=== PATIENT | male | born 1940 | race Caucasian/White ===

== ENCOUNTER 2023-02-01 12:02 | Day surgery (SDC) | payer BC, MEDICARE, SELFPAY ==
[2023-01-26 13:25] VITALS: BMI 25.8
[2023-02-01] VITALS (10 sets, daily range): BP systolic 106–146; BP diastolic 54–89; PULSE 58–90; RESP 12–23; TEMP 36.4–37.1; O2SAT 94–100; BMI 25.8
--- NOTE | 2023-02-01 06:39 | DI.RAD.S_ITS ---
PROCEDURE: XR HIP W PEL IF DONE RT 2V INDICATIONS: post op TECHNIQUE: 4 intraoperative fluoroscopic spot films were obtained COMPARISON: None. FINDINGS: Low resolution intraoperative fluoroscopic spot films show right arthroplasty in progress IMPRESSION: Fluoroscopic guidance Approved by: Reuben Melgar M.D. on 02/01/2023 at 17:27
[2023-02-01] MEDS: CELECOXIB 200 MG CAPSULE PO (12:22)
[2023-02-01 12:23] LABS: COVID19 -Nasal RAPID Negative (Negative)
[2023-02-01] MEDS: ACETAMINOPHEN 325 MG TABLET 975 MG PO (12:23)
[2023-02-01] MEDS: LACTATED RINGERS 1,000 ML 42 ML IV ×2 (12:23→16:06)
[2023-02-01] MEDS: VANCOMYCIN 1,000 MG/200 ML PIGGYBACK 200 MG IV (12:49)
--- NOTE | 2023-02-01 13:35 | PM.PREOP ---
Pre-operative Note COVID-19 COVID-19 status: Negative Interval Note History & Physical reviewed/Exam performed by Physician: Yes Changes to H&P: No
--- NOTE | 2023-02-01 13:36 | PM.OP.1 ---
Operative Date/Time/Diagnoses Date of procedure: 02/01/23 Time of procedure: 14:00 Pre-op diagnosis: right hip OA Post-op diagnosis: same Procedure & Clinicians Procedure: Right total hip arthroplasty anterior approach Same procedure as scheduled: Yes Indications: The patient has had progressively worsening right hip pain with radiographic changes consistent with arthritis. Non-operative management has failed and the patient has requested total hip replacement. The risks, benefits and alternatives to surgery were discussed with the patient prior to proceeding. Risks discussed included, but were not limited to, failure to relieve pain, leg length discrepancy, dislocation, stiffness, infection, nerve damage, deep venous thrombosis, pulmonary embolism, stroke, coma, heart attack, permanent paralysis and , as well as the potential need for eventual revision of the prosthetic. Surgeon: Qiana Hedrick Senior Animal Trainer: Mayur Smalls Anesthesia Type: General and Spinal Operative Notes Findings: Severe right hip OA, adequate bone and stability Closure Type: primary Specimen(s): none sent Prosthetic devices, grafts, tissues, transplants, or devices: Hedrick and nephew anthology a fit size 9 standard offset, R3 54, neutral poly liner,one 6.5 mm screw, 36 x -3 Oxinium head Estimated Blood Loss (mL): 250 Blood products transfused: none Procedure in detail: The patient was brought to the operating room. Patient was carefully positioned in the supine position. Time-out was performed and antibiotics were given. Anesthesia was induced. He was positioned in the on the table in order to allow hyperextension of the hip. The right lower extremity was prepped and draped in a standard sterile fashion. An anterior right hip incision was made 1 fingerbreadth lateral to the anterior superior iliac spine and extended distally towards the greater trochanter. Dissection was carried out through skin and subcutaneous tissues. Superficial hemostasis was achieved. The fascia over the tensor fascia sara was defined and incised with a knife. Two Allis clamps were used to grasp the fascia. Tensor fascia sara was retracted laterally. A gelpi retractor was placed. Dissection was carried out down along the neck. The circumflex vessels were carefully identified and cauterized with the werewolf. There was good visualization of the femoral neck. A Cobra was placed superior to the neck and the gluteus fibers were carefully stripped from that superior aspect of the capsule. A 2nd retractor was placed along the inferior aspect of the neck. The rectus insertion along the capsule was partially released. A 3rd retractor that was then gently placed over the rim of the acetabulum under the rectus. Capsule was carefully incised and released from the intertrochanteric line circumferentially superior to the mid sagittal line and inferiorly to the mid sagittal line until the lesser trochanter was palpable. A tag stitch was placed both in the superior and inferior limb of the capsular insertion. Along the acetabulum capsule was also released up to the mid sagittal 12:00 position. A portion of the labrum was resected. A saw was used to perform an osteotomy at the level of the intertrochanteric line and the junction of the superior femoral neck leaving approximately 1 finger breath of residual inferior neck above the lesser trochanter. A 2nd cut was made along the femoral neck at the base of the head and a napkin ring of neck was removed. Corkscrew was placed in the femoral head and the head was removed without difficulty. Retractors were then repositioned around the acetabulum. Residual labrum was resected and additional osteophytes were removed. A reamer that was 4 mm below the templated size was placed by hand in the acetabulum and it was reamed to centralize the acetabulum. It was then reamed up to 2 under the templated size and fluoroscopy was brought in to confirm the position of the reaming and depth of reaming. I reamed 1 under the anticipated size. A trial cup was placed and noted that it was appropriately sized and fluoroscopy confirmed position and depth. The component was open and inserted without difficulty fluoroscopic imaging was used to confirm that the cup had been adequately seated and was well positioned. It was further stabilized with a single screw. Neutral poly liner was placed. The cup was tested and noted to be stable. Attention was then directed to the femur. The femur was gently hyperextended additional capsular release was performed as needed in order to allow adequate visualization of the proximal femur with elevation of the femur. Patient was placed in a hyperextended slightly adducted position with maximum external rotation. Box osteotome was used to check for any residual neck as well as sclerotic bone along the trochanter. [place] pepper was placed in the femur. Additional broaching was performed. Canal finder was used to determine the alignment of the canal and position. Size 1 broach was placed. The canal was then appropriately broached up to the templated size as long as there was adequate stability of the broach and serial advancement of the broach without excessive impingement. Specific attention was directed at avoiding varus attempting to direct the distal aspect of the broach more anteriorly and avoiding excessive anteversion. Trial reduction showed acceptable range of motion, good stability, no posterior impingement, sikhism of leg length and appropriate lateral shuck. I also hyperflexed the hip and checked that there was no impingement anteriorly and there was good stability with flexion, adduction and internal rotation. Marcaine and Exparel were injected. The stem was placed without difficulty. Repeat trial reduction and x-ray showed acceptable overall position, length, and no evidence of the femoral fracture. Final head was placed. Wound was meticulously irrigated with normal saline. The hip was reduced and additional Exparel and Marcaine were injected. The capsule was closed with interrupted nonabsorbable sutures. The fascia of the tensor was closed with interrupted and running Vicryl. No drain was placed. Any tensor fascia sara muscle that appeared to be contused or injured which was a minimal amount was carefully resected. Capsule around the tensor was injected with Exparel and Marcaine. The skin was closed with barbed stitches for the subcutaneous tissue and skin. We also used surgical glue. The wound was dressed sterilely. Brief Betadine soak was also used and was meticulously irrigated with normal saline. Patient was transferred to recovery room in satisfactory condition. Complications: none Post-operative Condition: stable Disposition: Acute Care Plan for aftercare: The patient will be maintained on a standard total hip replacement protocol with weight bearing as tolerated and anterior hip precautions. The patient will receive Aspirin and sequential compression devices for DVT prophylaxis. The patient will be discharged home when safe for the home environment.
[2023-02-01] MEDS: CEFAZOLIN 2 GM/100 ML PREMIX 100 ML IV ×2 (14:15→22:07)
[2023-02-01] MEDS: TRANEXAMIC ACID 1,000 MG VIAL 1000 MG INJ ×2 (14:25→16:20)
--- NOTE | 2023-02-01 14:45 | SUR.OPER ---
Patient supine on padded Henrietta table, one arm on padded arm board at <90, other arm padded and secured with tape across patient's chest, both legs secured in padded traction boots and positioned per surgeon, padded post at patient's groin, pressure points checked and padded.
[2023-02-01] MEDS: BUPIVACAINE 0.25% (PF) 60 ML, EPINEPHrine 0.3 MG INJ (15:53)
[2023-02-01] MEDS: BUPIVACAINE LIPOSOME 266 MG/20 ML VIAL INJ (15:53)
[2023-02-01] MEDS: SODIUM CHLORIDE IRRIG SOLUTION 250 ML, POVIDONE-IODINE SPONGE STICKS 1 APPLIC IRR (16:08)
--- NOTE | 2023-02-01 17:00 | DI.RAD.S_ITS ---
PROCEDURE: XR HIP W PEL IF DONE RT 2V INDICATIONS: RIGHT ANTERIOR POST OP HIP TECHNIQUE: AP pelvis and lateral view of the right hip acquired. COMPARISON: Located Within [facility], [place], XR HIP W PEL IF DONE RT 2V, 02/01/2023, 15:18. FINDINGS: Bones: Patient is status post right hip arthroplasty, with hardware components in expected positions. The hip joint appears congruent. The visualized bony structures appear intact. Soft tissues: Overlying postoperative changes are noted. No suspicious soft tissue densities. IMPRESSION: Postoperative changes from right hip arthroplasty. No definite unexpected findings. Dictated by: Allen Pelaez M.D. on 02/02/2023 at 9:01 Approved by: Allen Pelaez M.D. on 02/02/2023 at 9:08
[2023-02-01] MEDS: hydrOXYzine pamoate 25 MG CAPSULE PO (17:15)
[2023-02-01] MEDS: OXYCODONE IR 5 MG TABLET PO (17:15)
[2023-02-01] MEDS: ACETAMINOPHEN 325 MG TABLET 650 MG PO ×2 (18:21→23:18)
[2023-02-01] MEDS: IBUPROFEN 400 MG TABLET PO ×2 (18:21→23:17)
[2023-02-01] MEDS: LACTATED RINGERS 1,000 ML 100 ML IV (18:21)
[2023-02-01] MEDS: DOCUSATE 100 MG CAPSULE PO (20:34)
[2023-02-01] MEDS: PREGABALIN 75 MG CAPSULE 150 MG PO (20:34)
[2023-02-01] MEDS: TAMSULOSIN 0.4 MG CAPSULE PO (20:34)
[2023-02-01] MEDS: ASPIRIN EC 81 MG TABLET PO (20:34)
[2023-02-02] VITALS: BP 131/83; PULSE 76; RESP 18; TEMP 36.7; O2SAT 96
--- NOTE | 2023-02-02 01:24 | PC.NURSE ---
Addendum entered by Michelle Kumar R.N. 02/02/23 06:47: Stood to void 525ml in urinal. PA in room to change saturated drsg. Original Note: Dbas Notes-At 2300, patient stood at side of bed to use urinal, voided 75ml, bladder scanned for 918ml, straight catheter done, drained 900ml clear yellow urine, patient tolerated well. Has minimal pain to right hip, scheduled ibuprofen and Tylenol given.
[2023-02-02 04:00] VITALS: BP 118/74; PULSE 72; RESP 18; TEMP 36.9; O2SAT 96
[2023-02-02 04:44] LABS: Hematocrit 36.3 % (41-53); Hemoglobin 12.1 g/dL (13.5-17.5)
[2023-02-02] MEDS: IBUPROFEN 400 MG TABLET PO ×2 (06:18→09:55)
[2023-02-02] MEDS: CEFAZOLIN 2 GM/100 ML PREMIX 100 ML IV (06:19)
[2023-02-02] MEDS: ACETAMINOPHEN 325 MG TABLET 650 MG PO ×2 (06:19→11:49)
--- NOTE | 2023-02-02 06:46 | P.DS_ITS ---
History of Present Illness History of Present Illness Date Patient Seen: 02/02/23 Time Patient Seen: 06:46 Chief complaint: Anterior YOGI Right *OPB* Narrative: Operative Date/Time/Diagnoses Date of procedure: 02/01/23 Time of procedure: 14:00 Pre-op diagnosis: right hip OA Post-op diagnosis: same Procedure & Clinicians Procedure: Right total hip arthroplasty anterior approach Same procedure as scheduled: Yes Indications: The patient has had progressively worsening right hip pain with radiographic changes consistent with arthritis. Non-operative management has failed and the patient has requested total hip replacement. The risks, benefits and alternatives to surgery were discussed with the patient prior to proceeding. Risks discussed included, but were not limited to, failure to relieve pain, leg length discrepancy, dislocation, stiffness, infection, nerve damage, deep venous thrombosis, pulmonary embolism, stroke, coma, heart attack, permanent paralysis and , as well as the potential need for eventual revision of the prosthetic. Surgeon: Qiana Hedrick Bootmaker: Mayur Smalls Anesthesia Type: General and Spinal Operative Notes Findings: Severe right hip OA, adequate bone and stability Closure Type: primary Specimen(s): none sent Prosthetic devices, grafts, tissues, transplants, or devices: Hedrick and nephew anthology a fit size 9 standard offset, R3 54, neutral poly liner,one 6.5 mm screw, 36 x -3 Oxinium head Estimated Blood Loss (mL): 250 Blood products transfused: none Discharge Providers Provider Discharge Date: 02/02/23 Primary care physician: Vielka Rodriguez MD Consults: 02/01/23 06:39 Consult to Anesthesiology Routine Comment: Consulting Provider: Anesthesiologist Reason for consultation: Regional block for post operative pain control 02/01/23 18:01 Consult to Discharge Planning Routine Comment: Consult to Physical Therapy Evaluate & Treat Comment: Physician Instructions: post op YOGI protocol Discharge provider: Muna Moreno PA-C Summary Hospital Course Discharge Diagnosis: Right hip osteoarthritis, s/p right total hip arthroplasty Hospital Course: Mr Arreaga's hospital course was unremarkable. On POD# 1 he was feeling well and wanted to go home. He was eating and voiding without difficulty and his pain was well-controlled with oral medication. He had not yet been evaluated by PT when I saw him. Exam Vital Signs (past 8 hours): - 02/02/23 00:00 02/02/23 04:00 Temperature 98.0 F 98.5 F Pulse Rate 76 72 Respiratory Rate 18 18 Blood Pressure 131/83 118/74 Pulse Oximetry 96 96 Oxygen Flow Rate 1 Oxygen Delivery Method Room Air,Nasal Cannula Oxygen Flow Rate 1 Narrative Exam Narrative: 5/5 strength in hip flexors, quadriceps, hamstrings, DF, PF, EHL on right. Sensation to light touch intact throughout RLE. Calves soft, compressible, nontender and without palpable cords or masses. Aquacel dressing saturated with blood and changed sterilely. Objective Labs 02/02/23 04:15 Labs: Laboratory Results - last 24 hr 02/01/23 02/02/23 12:00 04:15 Hgb 12.1 L Hct 36.3 L SARS-CoV-2 (PCR) Negative PFSH Medical History (Updated 01/26/23 @ 14:11 by Radha Flores RN) BPH (benign prostatic hyperplasia) Brachial plexus injury Easy bruisability Osteoarthritis Surgical History (Updated 01/26/23 @ 14:10 by Radha Flores RN) History of bilateral carpal tunnel release Hx of bilateral cataract extraction Hx of fusion of cervical spine Hx of right inguinal hernia repair (2017) Hx of shoulder surgery Hx of shoulder surgery Hx of tonsillectomy Social History household members: significant other Smoking Status: Never smoker alcohol intake: current Discharge Assessment & Plan Assessment and Plan Assessment: Right hip osteoarthritis, s/p right total hip arthroplasty Plan of Treatment: Discharge home, ASA 81 mg BID x 6 weeks for VTE prophylaxis. Multimodal pain control, outpt PT, f/u in office in 2 weeks. Discharge Plan Discharge Plan Patient Disposition: Home Discharge orders & Medications Discharge Orders: Discharge (Order); Ordered 02/02/23 Ordered By: Muna Moreno Prescriptions: Continued tamsulosin 0.4 mg Capsule 0.4 mg PO BEDTIME ibuprofen 200 mg Tablet 400 mg PO DAILY PRN (Reason: Pain) duloxetine 20 mg Capsule,Delayed Release(Dr/Ec) 20 mg PO DAILY duloxetine 60 mg Capsule,Delayed Release(Dr/Ec) 60 mg PO DAILY Patient Comments: Takes with 20mg for 80mg total daily pregabalin 150 mg Capsule 150 mg PO BID Follow up/Referrals: Vielka Rodriguez MD [Primary Care Provider] - Qiana Hedrick MD [Physician] - As previously scheduled (Follow up w/ Mayur Smalls PA-C, on 02/16/2023 @ 1:30 pm at [facility] office in [place].) Diet/Activity/Treatments Diet: Diet as Tolerated Activity: Weightbearing as tolerated on right leg. Anterior hip precautions. Cold/Heat Therapy: Ice to hip as needed for pain. Skin/Wound/Dressing Care Report to your healthcare provider any signs of infection, such as:: chills, fever, night sweats, unusual drainage and unusual redness Dressing: Leave Aquacel dressing in place until follow up in office. No bathing or otherwise soaking incision. Call office if dressing becomes saturated inside. Visit Report/Discharge Packet Instructions: DI for Hip Replacement Stand Alone Forms: Patient Portal/API, Surgery Discharge Discharge Data Primary Care Provider: Vielka Rodriguez Attending Provider: Qiana Hedrick
[2023-02-02] MEDS: DOCUSATE 100 MG CAPSULE PO (08:02)
[2023-02-02] MEDS: ASPIRIN EC 81 MG TABLET PO (08:02)
[2023-02-02] MEDS: DULOXETINE 20 MG CAPSULE PO (08:02)
[2023-02-02] MEDS: DULOXETINE 30 MG CAPSULE 60 MG PO (08:02)
[2023-02-02] MEDS: PREGABALIN 75 MG CAPSULE 150 MG PO (08:02)
[2023-02-02 08:06] VITALS: BP 120/75; PULSE 66; RESP 18; TEMP 36.3; O2SAT 97
--- NOTE | 2023-02-02 09:00 | PT.IIE ---
Current Diagnoses Unilateral primary osteoarthritis, right hip (02/01/23) Surgery Performed Operation Date: 02/01/23 13:45 Actual Procedures p Total Hip Arthroplasty/Anterior Approach(Right) - Qiana Hedrick MD Surgical History (Last Updated 01/26/23 @ 14:10 by Radha Flores, RN) History of bilateral carpal tunnel release Hx of bilateral cataract extraction Hx of fusion of cervical spine Hx of right inguinal hernia repair (2017) Hx of shoulder surgery Hx of shoulder surgery Hx of tonsillectomy Medical History (Last Updated 01/26/23 @ 14:11 by Radha Flores RN) BPH (benign prostatic hyperplasia) Brachial plexus injury Easy bruisability Osteoarthritis Physical Therapy Inpatient Evaluation/Re-Eval M1 PT/OT-IP Prior Functional Status Start: 02/02/23 08:12 Freq: NEEDED Status: Discharge Protocol: Document 02/02/23 08:52 AMB (Rec: 02/02/23 09:01 AMB [id number]) Medical Review Prior Functional Status Medical History Reviewed Yes Diet/Fluid Consistency Regular Communication WFL Activities of Daily Living and IADL's Hx L shoulder significantly impaired with ROM and strength Social History Household Members significant other Living Arrangements House Number of Floors (Floors) Two Floors Number of Stairs To Enter/Railing? 10 with B railings. 15 stairs in house with R railing, bedroom and bathroom upstairs Home Equipment Front Wheel Walker,Straight Cane Employment Status Retired M2 PT-IP Current Condition Start: 02/02/23 08:12 Freq: NEEDED Status: Discharge Protocol: Document 02/02/23 08:52 AMB (Rec: 02/02/23 09:01 AMB [id number]) Physical Therapy Current Condition Current Condition Evaluation Date 02/02/23 Treatment Diagnosis R anterior total hip Onset Date 02/01/23 M3 PT-IP Subjective Start: 02/02/23 08:12 Freq: NEEDED Status: Discharge Protocol: Document 02/02/23 08:52 AMB (Rec: 02/02/23 09:01 AMB [id number]) Subjective Physical Therapy Visit Type Type Initial Evaluation Visit Start Time 08:20 Visit Stop Time 08:45 Total Visit Minutes 25 Physical Therapy Visit Comments Patient Comments Pt ready to get up Therapy Pain Assessment Pain When Pain Assessed At Rest Pain Present Pain Present Denied Pain M4 PT-IP Mobility and Gait Start: 02/02/23 08:12 Freq: NEEDED Status: Discharge Protocol: Document 02/02/23 08:52 AMB (Rec: 02/02/23 09:01 AMB [id number]) PT-Bed Mobility Assessment Rolling Type of Rolling Roll to Left Level of Assist Standby Assistance Supine to Sit Supine to Sit Standby Assistance Sit to Supine Sit to Supine Standby Assistance Scooting Scooting to Edge of Bed Independent PT-Transfer Assessment Sit to and From Stand Sit to and from Stand Standby Assistance Equipment Transfer Assistive Device Gait Belt Transfers Transfer Destination Chair Transfer Technique Stand Step Pivot Transfer Ability Level of Assist Standby Assistance Comments Mobility Comments Bal moved well after instructing in weightbearing and hip precautions. Gait Assessment Gait Gait Assistance Required: Contact Guard Assist Distance (Feet) 200 Able to Maintain Weight Bearing Status Yes During Gait Assistive Devices Assistive Device Gait Belt,Front Wheeled Walker Gait Deviations General Gait Pattern Antalgic Factors Limiting Gait Function Factors Limiting Gait Function Decreased Strength,Pain Comments Gait Comments Pt with baseline impaired L shoulder so pt needs to place L hand on walker with the R arm. After that he walked well, working on trying to reduce the antalgic gait that has become habitual Stair Climbing Assessment Technique/Endurance Stair Climbing Direction Ascend and Descend Stair Climbing Technique Step to Step Number of Steps Climbed 3 Query Text: Stair Climbing Set # Repetitions (reps) 2 M5 PT-IP Objective Assessments Start: 02/02/23 08:12 Freq: NEEDED Status: Discharge Protocol: Document 02/02/23 08:15 AMB (Rec: 02/02/23 15:44 AMB [id number]) Orientation Orientation/Cognition Level of Alertness Alert Gross Range of Motion Upper Extremity ROM Assessment Left Impaired Lower Extremity ROM Assessment Right Impaired Strength Upper Extremity Strength Assessment Left Impaired Lower Extremity Strength Assessment Right Impaired Coordination Assessment Gross Coordination Gross Coordination WNL Sensation Assessment Sensation Gross Sensation WNL M6 PT-IP Treatment Start: 02/02/23 08:12 Freq: NEEDED Status: Discharge Protocol: Document 02/02/23 08:15 AMB (Rec: 02/02/23 15:44 AMB [id number]) Physical Therapy Treatment Exercises Exercises Ankle Pumps,Gluteal Sets,Quad Sets,Heel Slides Education Education Provided Precautions,Weight Bearing Status,Post-Op Packet,Safety M7 PT-IP Assessment and Plan Start: 02/02/23 08:12 Freq: NEEDED Status: Discharge Protocol: Document 02/02/23 08:52 AMB (Rec: 02/02/23 09:01 AMB [id number]) PT Summary Assessment and Plan Potential Rehabilitation Potential Good Status of Condition at Evaluation Stable Summary Impairments Strength,Bed Mobility,Gait Assessment Summary Bal is admitted s/p YOGI (R anterior). His bandage was leaking blood at beginning of treatment and PT let RN know who let PA know and in the interim RN applied extra bandaging. 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 Ambulated 200ft+ to stairs with SBA, FWW and good step length. Ascended and descended 3 stairs with one railing x 2 with good step to gait patterning. Pt then ambulated back to room and sat in chair for breakfast. Cleared to go home with partner when medically stable. Goals Bed Mobility Goal Standby Assistance Transfer Goal Standby Assistance Gait Goal Standby Assistance Gait Distance 200 Other Goals 6 stairs ascend and descend with SBA and 1 railing Days to Meet Goals 1 Frequency of Treatment Frequency Of Treatment Discharge Treatment Plan Physical Therapy Treatment Plan Bed Mobility Training,Transfer Training,Gait Training, Therapeutic Exercise,Balance Retraining Precautions Anterior Hip Precautions No Hip Extension,No Hip External Rotation Weight Bearing Status Weight Bearing Status Weight Bear as Tolerated Recommendations To Nursing Amount of Assist Needed 1 Person Assist Discharge Recommendations PT Discharge Recommendations Home with Assistance, Outpatient PT Transportation Needs at Discharge Private Vehicle
[2023-02-02] MEDS: LIDOCAINE 1% 20 ML 3 ML INJ (10:25)
--- NOTE | 2023-02-02 12:15 | PC.NURSE ---
Day Shift Note Patient up with PT at 0820 and dressing was noted to be saturated with bloody drainage running down leg. Dressing changed early this AM by PA. ABD placed over aquacel and secured as a pressure dressing and ice pack placed over site. Muan MARCOS called and notified of the saturated dressing and following interventions. Muna MARCOS at bedside to assess incision site, 3ml 1% lidocaine drawn up per request and administered subcut by PA. Several jan placed to incision and new aquacel placed by PA. Pt tolerated well. On reassessment, no saturation or bloody drainage of new dressing noted, pt aware of need to call Orthopedic office if this happens again. Awaiting ride for d/c at this time.
--- NOTE | 2023-02-02 13:15 | CM.DANOTE ---
Initial DCP Assessment Note Pt is a 82 yo male, resident of [place], now POD#1 from s/p right total hip arthroplasty by Dr Hedrick PCP: Vielka Rodriguez Payer: out of state [employer] Reviewed chart, met w/patient this morning, he was sitting up and states cleared by PT. 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 to assist; close outpatient f/u recommended, outpatient PT CHANEL Evans Discharge Planning/Care Management CM Discharge Assessment Start: 02/02/23 13:00 Freq: Status: Active Protocol: Document 02/02/23 13:00 LISA (Rec: 02/02/23 13:15 [id number]) Discharge Planning Assessment Assigned Pump Oiler CHANEL Mary DPOA/Assigned Designee Name Whitney Medina S.O. Contact Information [phone] Advance Directives? Yes Advance Directives on File No History Provided By Patient Prior Living Arrangements House Household Members significant other Type of transporation used prior to Drives own vehicle admit Independent with ADL's Yes Is patient alert and oriented? Yes Patient/Family Preference OP PT Therapy Barriers to Discharge No Discharge Plan Home Transportation Arrangement S.O. Referrals Initiated None needed
== END 2023-02-02 13:20 | disposition home or self-care (01) ==
LOC: OR 12:08 → AC 12:08 → ICU 12:50
PROVIDERS: PCP Family Medicine; Referring Provider Orthopaedic Surgery; Visit Provider Orthopaedic Surgery
PROC: (CPT 27130; principal; 2023-02-01 13:45)
DX: M16.11 Unilateral primary osteoarthritis, right hip (principal); Z20.822 Contact with and (suspected) exposure to COVID-19
CPT/HCPCS: 27130; 36415; 73502; 76000; 85014; 85018; 87635; 97161; C1776; C9803; C9290; J0171; J0690; J1100; J2250; J2405; J2704; J3010